=== PATIENT | female | born 1985 | race Caucasian/White ===

== ENCOUNTER 2016-11-17 08:29 | Inpatient (IN) | payer OTHER ==
[2016-11-17] MEDS ORDERED: Ondansetron 4 MG/2 ML SDV IV PRN (08:39)
[2016-11-17] MEDS ORDERED: Lidocaine 1% 30 ML SDV INJECT PRN (08:39)
[2016-11-17] MEDS ORDERED: Acetaminophen 325 MG Tab PO PRN (08:39)
[2016-11-17] MEDS ORDERED: Carboprost Tromethamine 250 MCG/1 ML Amp IM PRN (08:39)
[2016-11-17] MEDS ORDERED: Methylergonovine 0.2 MG/1 ML Amp IM PRN (08:39)
[2016-11-17] MEDS ORDERED: Sodium Chloride 0.9% 10 ML Syringe FLUSH PRN (08:39)
[2016-11-17] MEDS ORDERED: Misoprostol 400 MCG (4 X 100 MCG TAB) RECTAL PRN (08:39)
[2016-11-17] MEDS ORDERED: Lactated Ringers 500 ML IV ONE (08:39)
[2016-11-17] MEDS ORDERED: Oxytocin/Normal Saline 30 UNIT/500 ML BAG IV SCH ×2 (09:00→09:15)
[2016-11-17] MEDS: Lactated Ringers 1,000 ML IV SCH ×3 (09:34→21:27)
[2016-11-17] MEDS ORDERED: Citric Acid/Sodium Citrate Solution 30 ML Cup ONE (10:35)
[2016-11-17] MEDS ORDERED: Oxytocin/Normal Saline 60 UNIT/1,000 ML BAG ONE (10:36)
[2016-11-17] MEDS ORDERED: Midazolam 1 MG/ML 2 ML SDV ONE (10:50)
[2016-11-17] MEDS ORDERED: fentaNYL 100 MCG/2 ML SDV ONE (10:50)
[2016-11-17] MEDS ORDERED: ceFAZolin 2 GM in Premix Bag 1 BAG IV ONE (10:50)
--- NOTE | 2016-11-17 11:10 | PN ---
DATE: 11/17/2016 Alesha is a delightful 31-year-old , who presented today at 39-2/7th weeks' gestation for induction of labor for gestational diabetes that has been diet controlled. She is 4 cm dilated. Artificial rupture of membranes was carried out. She had low-dose Pitocin on board. She was doing well, then, they noticed a decrease in heart rate. She was found to have a prolapsed cord. We are unable to reduce that, therefore, we are going to take her for primary low- transverse section. Dr. Napoles will be primary surgeon and I will be assisting him. I have reviewed the procedure with the patient and her . Likely, we will use general anesthesia. They understand the procedure, the risks, alternatives, and benefits, and are comfortable with proceeding at this time. The risks included, but not limited to, infection and use of antibiotics, risk of hemorrhage and the need for transfusion with its inherent risks, possibility of injury to mom and baby, reaction to anesthesia, etc. All of their questions were answered and they wished to proceed. Dr. Cisneros and Dr. Napoles will be in attendance along with me. [facility] /[id number]
[2016-11-17] MEDS ORDERED: ePHEDrine 50 MG/ML SDV IVPUSH PRN (11:37)
[2016-11-17] MEDS ORDERED: diphenhydrAMINE 50 MG/ML SDV IVPUSH PRN (11:37)
[2016-11-17] MEDS ORDERED: Naloxone 2 MG/2 ML Syringe IVPUSH PRN (11:37)
[2016-11-17] MEDS ORDERED: HYDROmorphone 1 MG/ML Syringe ONE (11:55)
[2016-11-17] MEDS ORDERED: Morphine PF 150 MG/30 ML PCA Syringe IV SCH (12:45)
[2016-11-17] MEDS ORDERED: Succinylcholine 200 MG/10 ML MDV ONE (13:03)
--- NOTE | 2016-11-17 13:50 | HP ---
REASON FOR ADMISSION: Induction of labor at term. HISTORY OF PRESENT ILLNESS: This 31-year-old, G2, P1, is currently 39 and 2/7th weeks' gestation with known gestational diabetes, which has been fairly well controlled on diet. She presents today for induction of labor as discussed and she has not gone into labor on her own and is now 39+ weeks gestation. The baby has been active. Reports she has had contractions on and off and is actually two nights ago with false labor. Reports she has past her mucus plugs, but has had no vaginal bleeding or fluid leakage. She has no new concerns today, and reports she checked her sugar at home today and it was 85. We discussed induction in the clinic the other day and they have no further questions or concerns today and wished to proceed. Her course has been followed closely in the clinic and she has been very compliant with her visits. Please see her episode for details. She is known O negative blood type and did receive her RhoGAM. She has taken her vitamins, and her hemoglobin has remained above 12. She has had the gestational diabetes as noted, and has had intermittent values above 120 in her 2 hours. However, for the most part, they have been well-controlled. Rubella immune. She has received her Tdap and her flu shot. Ultrasound was consistent with dates and within normal limits. Anterior placenta with no sign of previa and they are not interested in knowing the gender. OBSTETRICAL HISTORY: Prior female child born at 38 weeks' gestation by spontaneous vaginal delivery that had fairly rapid labor. MEDICATIONS: 1. vitamins. 2. Metformin that she stopped after conception. ALLERGIES: Listed include amoxicillin and Bactrim. PAST MEDICAL HISTORY: Includes her PCOS. FAMILY HISTORY: Noted in her OB chart. SOCIAL HISTORY: She has never smoked. Rare alcohol use. No history of drug use. Works at [employer]. . is [place]. They have a daughter and are expecting their second child as noted, and they do not know the gender. 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 REVIEW OF SYSTEMS: Otherwise, noncontributory. She has no preeclampsia symptoms. OBJECTIVE: Vital Signs: As noted. General: On examination, she looks well. She is alert, pleasant, and cooperative. HEENT: Negative. Lungs: Clear. Heart: Heart sounds regular. Abdomen: Gravid. Baby is in a vertex presentation by Al's maneuvers. Cervix is 3+ cm dilated, 75% effaced, vertex is -2 station, and bag of water is intact. Vertex is not ballotable, except with firm pressure. Extremities: Within normal limits, and there is no significant edema, just a slight puffiness in the ankles. The heart tracings are reassuring. NST is reactive and there are no decelerations. LABORATORY DATA: Lab work is pending. Attempted artificial rupture of membranes was unsuccessful. IMPRESSION: 1. A 31-year-old, G2, P1, at 39 and 2/7th weeks' gestation. 2. Diet-controlled gestational diabetes. 3. Candidate for induction. 4. Reactive, reassuring NST. 5. Rubella immune. 6. Group B strep negative. 7. O negative blood type, received RhoGAM. PLAN: We will proceed with induction today. We will continue to follow her glucose levels about every 2 hours in labor and further management pending those levels. Since artificial rupture of membranes was unsuccessful, we will start with a low-dose Pitocin and get the vertex better engaged and then proceed with artificial rupture of membranes. This is reviewed with the patient and her and they are comfortable with this plan and wished to proceed. Further management pending her course in labor. All of their questions were answered. Anticipate likely vaginal delivery. We will watch the baby after delivery for signs of hypoglycemia. Other routine orders. Admission orders have been placed. Further management pending her clinical course in labor. [facility] /[id number] Addendum: Pitocin running. Vertex well applied. Cervix 4+ cm dilated. BOWI and bulging. Small opening made with Amniohook, and large amount of clear fluid released. Vertex settled nicely against cervix. still -2/-3 station. Will continue pitocin. [facility]
[2016-11-17] MEDS ORDERED: fentaNYL 100 MCG/2 ML SDV IV ONE (15:16)
[2016-11-17] MEDS ORDERED: Succinylcholine 200 MG/10 ML MDV IV ONE (15:16)
[2016-11-17] MEDS ORDERED: HYDROmorphone 1 MG/ML Syringe IV ONE (15:16)
[2016-11-17] MEDS ORDERED: Midazolam 1 MG/ML 2 ML SDV IV ONE (15:16)
[2016-11-17] MEDS ORDERED: Ondansetron 4 MG/2 ML SDV IV ONE (15:16)
[2016-11-17] MEDS ORDERED: Ketorolac 30 MG/ML SDV IVPUSH ONE (15:16)
[2016-11-17] MEDS ORDERED: Propofol 200 MG/20 ML SDV IV ONE (15:16)
[2016-11-17] MEDS ORDERED: Lactated Ringers 1,000 ML IV ONE (15:16)
[2016-11-17] MEDS: Ketorolac 30 MG/ML SDV IVPUSH SCH ×2 (16:55→22:43)
[2016-11-17] MEDS: Simethicone 80 MG Tab.Chew PO PRN (22:43)
[2016-11-17] MEDS: Docusate Sodium 100 MG Cap PO PRN (22:43)
[2016-11-18] MEDS: Ketorolac 30 MG/ML SDV IVPUSH SCH (04:47)
[2016-11-18] MEDS: Simethicone 80 MG Tab.Chew PO PRN ×4 (04:48→20:41)
[2016-11-18] MEDS: Prenatal Multivitamin with Calcium/Folic Acid/Iron Tab PO SCH (09:32)
[2016-11-18] MEDS: Docusate Sodium 100 MG Cap PO PRN ×2 (09:32→22:33)
[2016-11-18] MEDS: Acetaminophen/oxyCODONE 325-5 MG Tab PO PRN ×3 (12:10→20:41)
--- NOTE | 2016-11-18 13:34 | PN ---
DATE: 11/18/2016 SUBJECTIVE: The patient was seen at [facility] on 11/18/2016. The patient is postoperative day #1, status post emergent for cord prolapse. The mom and baby are both doing well today. The patient's lochia is minimal. OBJECTIVE: VITAL SIGNS: She is afebrile. Heart rate 74 to 91, blood pressure 101 to 132 over 60 to 80, O2 sat 98% to 100%. The patient is rubella immune. She is O negative, but baby is also Rh negative. The patient is an A1 gestational diabetic, but her fasting glucose this morning was 97. The patient's hemoglobin prior to the was normal, hemoglobin this morning is 9.4, and white count is normal at 10.6, platelets 172. The patient's abdomen is benign and the baby is still in place. ASSESSMENT AND PLAN: Postoperative day #1, status post emergent low-transverse for cord prolapse with A1 gestational diabetes. Mom and baby are both doing well. 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 [facility] /[id number] MADDI
[2016-11-18] MEDS: Ibuprofen 800 MG Tab PO PRN ×2 (13:42→22:33)
--- NOTE | 2016-11-18 19:19 | OR ---
DATE: 11/17/2016 LOCATION: [facility]. PREOPERATIVE DIAGNOSIS: Intrauterine at term with A1 gestational diabetes and cord prolapse. POSTOPERATIVE DIAGNOSIS: Intrauterine at term with A1 gestational diabetes and cord prolapse. PROCEDURE: Emergent primary low-transverse . BLACK ASH WORKER: Verónica Cardona MD ANESTHESIA: General endotracheal. FINDINGS: There was a viable infant. Weight 6 pounds 8 ounces. scores of 8 and 9. The patient had normal female anatomy. ESTIMATED BLOOD LOSS: 600 mL. PROCEDURE IN DETAIL: Dr. Cardona was augmenting this patient's labor when the cord prolapse was identified. She was emergently taken to the operating room where she was prepped and draped in a normal sterile fashion. Actually, a good prep was performed. Dexter was in place. General anesthesia was induced. She was placed in a leftward tilt, and then the skin incision was made 2 fingerbreadths above the pubic symphysis and carried down to the underlying fascia. With a Bovie, fascia was incised in the midline. Fascial incision was extended laterally. The upper aspect of the fascia was grasped, and the rectus muscles were dissected off bluntly with heavy scissors. Lower aspect of the fascia was grasped, and the rectus muscles were dissected off bluntly with heavy scissors. The peritoneum was then entered with blunt finger dissection. Peritoneum stretched open. Bladder blade was inserted. Lower uterine segment was incised in a transverse fashion with a scalpel, and the hysterotomy was extended using the Bonilla method. The 's head was grasped and the was delivered. Upon entering the uterus, it was obvious that both the hand and the cord had both prolapsed through the cervix. The cord was cut and clamped. The was handed off to the awaiting nursery team. As stated before, the scores were good at 8 and 9. The babygirl weighed 2935 g. The placenta was then manually extracted. The uterus was exteriorized and cleared of all clots and debris. The hysterotomy was repaired with a running locked 0 Vicryl with a second layer of 0 Vicryl imbricating, had excellent hemostasis. Uterus was returned to the abdomen. Pelvis was copiously irrigated. The peritoneum was reapproximated using a 3-0 Vicryl. Fascia was repaired using a running 0 Vicryl. Subcutaneous fat was irrigated, and the skin was repaired using a 4-0 Monocryl on a Kareem needle with Steri-Strips over that. The patient tolerated the procedure well. Sponge, lap, and needle counts were correct x2. The patient was taken to the recovery room in stable condition. [facility] /[id number]
[2016-11-19] MEDS: Acetaminophen/oxyCODONE 325-5 MG Tab PO PRN ×6 (00:32→21:38)
[2016-11-19] MEDS ORDERED: Acetaminophen/oxyCODONE 325-5 MG Tab ONE (05:35)
[2016-11-19] MEDS: Ibuprofen 800 MG Tab PO PRN ×2 (07:23→15:47)
[2016-11-19] MEDS: Docusate Sodium 100 MG Cap PO PRN ×2 (08:01→21:37)
[2016-11-19] MEDS: Prenatal Multivitamin with Calcium/Folic Acid/Iron Tab PO SCH (08:01)
[2016-11-19] MEDS: Simethicone 80 MG Tab.Chew PO PRN ×3 (08:01→21:38)
--- NOTE | 2016-11-19 11:14 | PN ---
DATE: 11/19/2016 The patient postoperative day 2, status post emergent for cord prolapse. The patient is still sore this morning, but has gotten up to shower, is voiding, ambulating, and tolerating p.o. The baby is doing well. She is afebrile. Heart rate 91 to 104, blood pressure 103 to 117 over 60 to 73, respiratory rate 16 to 18, and O2 sat 97%-100%. The patient's abdomen is benign, somewhat tender, but the bandage has been removed. The incision is clean, dry, and intact. Extremities have no calf tenderness. No edema. Preoperative hemoglobin was 12.0, hemoglobin yesterday after surgery was 9.4, white count was normal at 10.6. The patient does have another CBC pending at 5 tomorrow morning. The patient's blood type is O negative. Her baby is also Rh negative, therefore no RhoGAM indicated and the patient is rubella immune. ASSESSMENT AND PLAN: Postoperative day 2, status post primary low-transverse section for cord prolapse. The patient is an A1 gestational diabetic, fasting glucose was normal yesterday, likely we will do type 2 diabetes screen on 6 week post visit. Otherwise, we will continue postoperative care. Continue Percocet for pain control. We will repeat her CBC in the morning, hopeful discharge tomorrow. [facility] /[id number]
[2016-11-20] MEDS: Ibuprofen 800 MG Tab PO PRN (01:19)
[2016-11-20] MEDS: Acetaminophen/oxyCODONE 325-5 MG Tab PO PRN ×2 (02:13→07:55)
[2016-11-20] MEDS: Docusate Sodium 100 MG Cap PO PRN (07:55)
[2016-11-20] MEDS: Simethicone 80 MG Tab.Chew PO PRN (07:55)
[2016-11-20] MEDS: Prenatal Multivitamin with Calcium/Folic Acid/Iron Tab PO SCH (07:55)
[2016-11-20] MEDS ORDERED: Ferrous Sulfate 325 MG Tab PO SCH (08:00)
[2016-11-20 10:01] VITALS: BP 113/66
[2016-11-20] MEDS ORDERED: Oxytocin/Normal Saline 30 UNIT/500 ML BAG IV ONE (11:29)
--- NOTE | 2016-11-20 14:54 | DISCH ---
FINAL DIAGNOSES: 1. A 31-year-old 2, now para 2. 2. Primary low-transverse section for prolapsed cord at 39 weeks 2 days. 3. Gestational diabetes, diet controlled, resolving. 4. O negative blood type. 5. Group B strep negative. 6. Rubella immune. 7. Viable female . 8. Anemia postop from acute blood loss. PROCEDURE: Primary low-transverse section for prolapsed cord without complications with Dr. Napoles assisted by Dr. Cardona on 11/17/2016 without complication. FINDINGS: This delightful 31-year-old G2, P1, presented at 39 and 2/7th weeks' gestation for induction of her high-risk due to her gestational diabetes, which had been diet controlled. We did start some Pitocin infusion after a reactive NST. The patient progressed to a 4+ cm dilation and had a bulging bag of fluid with a vertex well applied to the cervix. Artificial rupture of membranes carried out with a large amount of clear fluid. She was later found to have a prolapse cord and a subsequent emergent section was carried out delivering a viable 6 pounds 8 ounce female with scores of 8 and 9 by a primary low-transverse section without complications, please see her operative note for details. She delivered at 10:51 a.m. on 11/17/2016. Her postop course has been uneventful. She has remained afebrile with stable vital signs. Her general anesthesia was uncomplicated and she was on a STORE CASHIER pump for pain control. She has now been well controlled with oral medication. She is voiding, ambulating, and eating without difficulty. Her incision remains intact with no sign of infection. She is and has been seen by our information services consultant. White count on admit was 9.0 with rechecks of 10.6 on postop day #1, and 8.8 on the day of discharge. Serial platelet counts 219, 172, and 226. Hemoglobin was 12.0 on admit with follow ups of 9.4, and 9.1. Blood type is O negative, and the baby was found to be A-, therefore, she does not need RhoGAM. She is group B strep negative and rubella immune. She will be discharged home today on 11/20/2016 in good condition with routine discharge instructions. She is ready for discharge and will be seen back in 1 week for postop recheck and sooner with any problems. Please see her progress notes and [facility] chart for further details, and all of her questions were answered. [facility] /[id number]
--- NOTE | 2016-12-19 16:38 | PCM48HPAN ---
Post Anesthesia Note - EVALUATION WITHIN 48HRS OF ANESTHETIC Vital Signs in Normal Range: Yes (T 37.2 C, HR 103, 110/63, 99% SPO2, 16 RR) Patient Participated in Evaluation: Yes Respiratory Function Stable: Yes Airway Patent: Yes Cardiovascular Function Stable: Yes Hydration Status Stable: Yes ([place] PO's well) Pain Control Satisfactory: Yes (No C/O pain) Nausea and Vomiting Control Satisfactory: Yes Mental Status Recovered: Yes - COMMENTS/OBSERVATIONS Free Text/Narrative:: No post anesthesia complications noted.
== END 2016-11-20 11:30 | disposition home or self-care (01) | DRG 766 ==
LOC: DL.OBCHECK 08:29 → DL.OB 08:41 → OBSVTOIN 10:51
PROVIDERS: ADMIT Family Medicine; ATTEND Family Medicine
PROC: 10D00Z1 Extraction of Products of Conception, Low, Open Approach (ICD-10-PCS; principal; 2016-11-17)
PROC: 3E033VJ Introduction of Other Hormone into Peripheral Vein, Percutaneous Approach (ICD-10-PCS; 2016-11-17)
PROC: 10907ZC Drainage of Amniotic Fluid, Therapeutic from Products of Conception, Via Natural or Artificial Opening (ICD-10-PCS; 2016-11-17)
DX: O24.420 Gestational diabetes mellitus in childbirth, diet controlled (principal); O69.0XX0 Labor and delivery complicated by prolapse of cord, not applicable or unspecified; O90.81 Anemia of the puerperium; D64.9 Anemia, unspecified; Z3A.39 39 weeks gestation of pregnancy; Z37.0 Single live birth
CPT/HCPCS: 01961; 36415; 82962; 85027; 86850; 86900; 86901; A9270-GY; J0330; J0690; J1170; J1885; J2250; J2274; J2405; J2590; J2704; J3010; J7120